=== PATIENT | male | born 1955 | race Caucasian/White ===

== ENCOUNTER 2019-06-03 22:48 | Emergency (ER) | payer MEDICARE ==
[2019-06-03 23:10] VITALS: BP 135/69; PULSE 80
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
== END 2019-06-03 23:16 | disposition home or self-care (01) ==
LOC: VM.ED 22:48
DX: M75.52 Bursitis of left shoulder (principal); I10 Essential (primary) hypertension; E11.9 Type 2 diabetes mellitus without complications; J45.909 Unspecified asthma, uncomplicated; Z79.82 Long term (current) use of aspirin; Z79.899 Other long term (current) drug therapy
CPT/HCPCS: 99282; 99282-GF

== ENCOUNTER 2025-02-02 15:46 | Emergency (ER) | payer OTHER, MEDICARE ==
[2025-02-02 16:42] VITALS: BP 134/50; PULSE 79
== END 2025-02-02 16:33 | disposition home or self-care (01) ==
LOC: VM.ED 15:46
DX: S52.241A Displaced spiral fracture of shaft of ulna, right arm, initial encounter for closed fracture (principal); S52.601A Unspecified fracture of lower end of right ulna, initial encounter for closed fracture; S80.211A Abrasion, right knee, initial encounter; I10 Essential (primary) hypertension; E11.9 Type 2 diabetes mellitus without complications; Z79.899 Other long term (current) drug therapy; Z79.51 Long term (current) use of inhaled steroids; Z79.82 Long term (current) use of aspirin; V29.008A Other motorcycle driver injured in collision with unspecified motor vehicles in nontraffic accident, initial encounter; Y93.89 Activity, other specified
CPT/HCPCS: 29105; 73090-RT; 99283-25